=== PATIENT | female | born 1990 | race Caucasian/White ===

== ENCOUNTER → 2021-06-04 10:02 | Outpatient (CLI) | payer OTHER, SELFPAY ==
--- NOTE | ~2021-06-04 | MMUS_ITS ---
EXAMINATION: MM diagnostic lane BI w hipolito, US breast BI complete HISTORY: Chronic right breast lumps at 12:00 and 9:00. Right whitish nipple discharge for 5 years. TECHNIQUE: ML, MLO and craniocaudal 3-D tomosynthesis images of both breasts were performed and synth etic 2-D images were generated. CAD analysis was submitted and interpreted. High resolution complete bilateral breast ultrasound including all 4 quadrants and subareolar areas was performed. COMPARISON: 08/05/2011 right breast ultrasound 05/02/2010 diagnostic right mammogram and right breast ultrasound BREAST PARENCHYMAL COMPOSITION: The breasts are extremely dense, which lowers the sensitivity of mamm ography. FINDINGS: MAMMOGRAPHIC FINDINGS: Dense stroma throughout both breasts, which may obscure masses.. No suspicious mass, architectural di stortion, malignant calcification, skin thickening or retraction is evident. ULTRASOUND: Right breast 12:00 subareolar: 3.8 x 3.1 x 4.2 mm circumscribed oval heterogeneous hypoechoic lesion is noted whic h appears unchanged since 08/05/2011. There is no suspicious internal vascularity or shadowing. The son ographic features and lack of change from most 10 years is consistent with benign process. 9:00 3 cm from nipple: Within the subcutaneous tissues there is an oval circumscribed sonolucency dominic suring 3.3 x 1.9 x 3 mm, without suspicious shadowing, benign in appearance. Left breast No suspicious left breast mass or shadowing is detected. IMPRESSION: 1. No mammographic evidence of malignancy 2. Routine mammographic screening beginning at age 40 is recommended BI-RADS Category 2: Benign finding(s). Reviewed, dictated and finalized at location A. AGE BATTERY CHARGER IMPRESSION: 1. No mammographic evidence of malignancy 2. Routine mammographic screening beginning at age 40 is recommended BI-RADS Category 2: Benign finding(s).
== END ==
PROVIDERS: PCP Nurse Practitioner Family; Visit Provider Advanced Practice Midwife
DX: N63.10 Unspecified lump in the right breast, unspecified quadrant (principal)
CPT/HCPCS: 76641; 77062; 77066; G0279

== ENCOUNTER 2024-09-06 11:31 | Emergency (ER) | payer BC, SELFPAY ==
--- NOTE | ~2024-09-06 | XR_ITS ---
XR chest 2V 09/06/2024 12:17 Indication: Cough for 3 weeks. Procedure: 2 view chest Comparison: No prior studies for comparison. Findings: There is left lower lobe pneumonia. Heart size normal. No pleural effusion or pneumothorax. Impression: 1: Left lower lobe pneumonia. Reviewed, dictated and finalized at location A. Impression: 1: Left lower lobe pneumonia.
[2024-09-06 11:43] VITALS: BP 95/68; PULSE 98; RESP 16; TEMP 37.7; O2SAT 99
--- NOTE | 2024-09-06 12:09 | ED_ITS ---
HPI - URI/Sore Throat General Chief Complaint: Upper Respiratory Infection Stated Complaint: Cough Time Seen by Provider: 09/06/24 12:00 Source: patient and RN notes reviewed Mode of arrival: ambulatory Limitations: no limitations History of Present Illness HPI Narrative: 34-year-old female presents to [facility] complaining upper respiratory symptoms for 3 weeks. Patient says she to home COVID test about 2 weeks ago in tested positive. Patient stated she started to feel better and her cough has progressively gotten worse. Patient states that her upper respiratory symptoms of resolved and she feels like it is more in her chest now. She reports a dry hacking cough that is nonproductive. Reports having coughing spells. She says she is short of breath when she is exerting herself but denies any shortness of breath at rest. He has been taking Tylenol and Zyrtec for symptoms. She says she uses her inhaler as needed for cough and says it helps as well. Patient also reported as she might be developing a urinary tract infection reports increased urinary hesitancy and burning with urination. She denies any fevers, chills, weakness, chest pain, Related Data Home Medications ?Medication ?Instructions ?Recorded ?Confirmed ?Last Taken ?Type tretinoin 0.05 % topical cream 1 applic topical ONCE 01/16/21 04/08/22 Unknown History lamotrigine 100 mg tablet,extended 100 mg PO DAILY 04/08/22 04/08/22 Unknown History release 24 hr (Lamictal XR) lisdexamfetamine 30 mg capsule 30 mg PO DAILY 04/08/22 04/08/22 Unknown History (Vyvanse) lisdexamfetamine 40 mg capsule 40 mg PO QAM 04/08/22 04/08/22 Unknown History (Vyvanse) bupropion HCl 300 mg 24 hr tablet, mg PO 09/06/24 Unknown History extended release ergocalciferol (vitamin D2) 1,250 09/06/24 Unknown History mcg (50,000 unit) capsule norethindrone (contraceptive) 0.35 mg 09/06/24 Unknown History mg tablet viloxazine 200 mg capsule,extended mg PO 09/06/24 Unknown History release 24 hr (Qelbree) Allergies Allergy/AdvReac Type Severity Reaction Status Date / Time Penicillins Allergy Mild Unknown Verified 09/06/24 12:01 sulfamethoxazole (From Allergy Unknown Unknown Verified 09/06/24 12:01 Bactrim) trimethoprim (From Bactrim) Allergy Unknown Unknown Verified 09/06/24 12:01 Review of Systems Review of Systems: CONSTITUTIONAL: Denies fever, chills, or sweats. EYES: Denies visual changes, redness, or discharge. ENT: Denies rhinorrhea, congestion, sore throat, or otalgia. CARDIOVASCULAR: Denies chest pain, palpitations, or edema. RESPIRATORY: Positive for cough and positive for dyspnea with exertion. GASTROINTESTINAL: Denies abdominal pain, nausea, vomiting, or diarrhea. GENITOURINARY: Positive for dysuria and increased urinary hesitancy. Negative for hematuria. SKIN: Denies rash or itching. MUSCULOSKELETAL: Denies back pain, joint pain, or myalgia. NEUROLOGIC: Denies headache, numbness, or weakness. PSYCHIATRIC: Denies anxiety or depression. All other systems reviewed are negative, except as documented in HPI. [facility] Past Medical History Medical History Essential hypertension GERD without esophagitis Asthma Breast lump Last pap smear 2017 ADD (attention deficit disorder) (~2009) Anxiety Surgical History Surgical History Hx of tonsillectomy (~2019) Hx of removal of thyroglossal duct cyst (~1993) Family History Family History Mother Family history of malignant neoplasm of cervix Grandparent Family history of malignant neoplasm of breast Diabetes mellitus Depression Family history of cardiovascular disease Father Family history of mental disorder Depression Hypertension Other Family history of coronary artery disease Social History Social History Social History: 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 Grew up in [place]. Smoking status: Never smoker Alcohol intake: current Drinks per week: 10 Substance use: never Lack of Transportation: No Lack of Food: Never True Current Housing: I Have Housing Concerned About Future Housing: No Difficulty Paying Gas/Electric Bills: No Difficulty Paying for Meds: No Currently Unemployed: No Education: Decline to Answer Difficulty w/ Childcare or Family Care: No Comments At the time of my signature, I reviewed and agree with the nursing past medical, surgical, social, and family history. There is no relevant family history pertinent to the patient complaint. Exam Narrative: GENERAL: This is a well-nourished, well-developed adult, in no apparent distress. She is ill-appearing, she is nontoxic appearing. HEAD: normocephalic, atraumatic. EYES: Sclera clear/white. Vision is grossly intact. Extraocular movements intact. EARS: External ears normal, auditory canals clear and without drainage, TMs normal without perforation. Hearing grossly intact. NOSE: External nose normal with no obvious nasal discharge, nares without redness, no rhinorrhea. THROAT: Mucous membranes moist, posterior pharynx mild erythema. No exudate, uvula midline. NECK: Neck supple, non-tender without lymphadenopathy, masses or thyromegaly. CARDIOVASCULAR: Regular rate and rhythm without murmurs, gallops, or rubs. RESPIRATORY: Lung sounds diminished to bilateral lower lobes. Cough exacerbated by deep inspiration. Breath sounds equal bilaterally. No wheezes, rales, or rhonchi. Normal respiratory rate and rhythm. Respirations are nonlabored, no accessory muscle use, no retractions while at rest. SKIN: warm, Dry, intact with no suspicious lesions or rash, good texture and turgor. NEURO: awake, alert, and oriented to person, place and time. There were no obvious focal neurologic abnormalities. EXTREMITIES: No joint tenderness, effusion, or edema noted. BACK: Nontender without deformity. No CVA tenderness. Course Course Level of Care: Express Care Visit Vital Signs Vital signs: Vital Signs Temperature 99.8 F H 09/06/24 11:43 Pulse Rate 98 09/06/24 11:43 Respiratory Rate 16 09/06/24 11:43 Blood Pressure 95/68 L 09/06/24 11:43 Pulse Oximetry 99 09/06/24 11:43 Temperature 99.8 F H 09/06/24 11:43 Pulse Rate 103 H 09/06/24 12:36 Respiratory Rate 18 09/06/24 12:36 Blood Pressure 111/70 09/06/24 12:36 Pulse Oximetry 98 09/06/24 12:36 Oxygen Delivery Room Air 09/06/24 11:45 Reviewed Transfer Transfered to: [place] Transportation: Other (Private vehicle) Transfer rationale: Patient has a left lower pneumonia and a urinary tract infection. Patient's walking pulse ox dropped to 92% with shortness of breath and respiratory distress with ambulation. Patient's blood pressure was borderline hypotensive. Patient needs higher level care, appropriate testing and treatment. Accepting physician: Dr. Mcconnell MDM - URI/Sore Throat MDM Narrative Medical decision making narrative: Patient's chest x-ray revealed a left lower lobe pneumonia. Patient states that she gets really very short of breath when she is walking. Walking pulse ox test here at the [facility] so that her O2 saturations dropped from 99-92% she became increasingly short of breath along with labored breathing and tachypnea. Patient's urine dipstick also reveal UTI. Patient's blood pressure was borderline hypotensive. Patient was recommended to go to the emergency room for further evaluation she is agreeable to go to [place] [facility]. Spoke with Dr. Mcconnell at [facility] and discussed patient care and she has accepted this patient to be transferred. Patient was advised to remain NPO and go to the emergency department immediately. Patient's family member will take her to the hospital. Lab Data Attestation: I reviewed the patient's lab results. Labs: Lab Results 09/06/24 Range/Units 12:12 POC Urine Color Dark POC Urine Clarity Clear POC Urine pH 6.0 POC Ur Specif [place] 1.020 POC Urine Protein 2+ (Negative) POC Ur Glucose (UA) Negative (Negative) POC Urine Ketones Trace (Negative) POC Urine Blood 3+ (Negative) POC Urine Nitrite Negative (Negative) POC Urine Bilirubin 2+ (Negative) POC Urine Urobilinogen 2.0 POC U Leukocyte Esteras Negative (Negative) POC Urine HCG, Qual Negative (Negative) Imaging Data Radiologist's impression: Indication: Cough for 3 weeks. Procedure: 2 view chest Comparison: No prior studies for comparison. Findings: There is left lower lobe pneumonia. Heart size normal. No pleural effusion or pneumothorax. Impression: 1: Left lower lobe pneumonia. Critical Care Time Critical Care Time Critical Care Time: No Discharge Plan Discharge Clinical Impression: Left lower lobe pneumonia Qualifiers: Pneumonia type: due to unspecified organism Qualified Code(s): J18.9 - Pneumonia, unspecified organism Patient Disposition: Acute Care Hospital Condition: Stable Patient Language: [place] Prescriptions: No Action ergocalciferol (vitamin D2) 1,250 mcg (50,000 unit) capsule norethindrone (contraceptive) 0.35 mg tablet bupropion HCl 300 mg tablet extended release 24 hr PO Qelbree 200 mg capsule,extended release 24hr PO escitalopram oxalate [Lexapro] 20 mg tablet 20 mg PO DAILY Qty: 90 1RF tretinoin 0.05 % cream 1 applic topical ONCE lamotrigine [Lamictal XR] 100 mg tablet extended release 24hr 100 mg PO DAILY Rx Instructions: 1/2 tablets qd Vyvanse 40 mg capsule 40 mg PO QAM Vyvanse 30 mg capsule 30 mg PO DAILY alprazolam [Xanax] 0.5 mg tablet 0.5 mg PO QHS PRN (Reason: anxiety) Qty: 30 0RF L norgest/e.estradiol-e.estrad [Ashlyna] 0.15 mg-30 mcg (84)/10 mcg (7) tablets,dose pack,3 month 1 tablet PO DAILY Qty: 182 3RF losartan 25 mg tablet 25 mg PO DAILY Qty: 90 1RF albuterol sulfate [ProAir HFA] 90 mcg/actuation HFA aerosol inhaler 1 puff inhalation Q4H PRN (Reason: shortness of breath or wheezing) Qty: 8.5 1RF Follow-up/Referrals: PHYSICIAN,BICYCLE REPAIRER [Primary Care Provider] - Time of Disposition: 12:46
[2024-09-06 12:15] LABS: BEDSIDEPREGUCG Negative (Negative); EDUAAPPEAR Clear; EDUABILI 2+ (Negative); EDUABLOOD 3+ (Negative); EDUACOLOR1 Dark; EDUAGLUCOSE Negative (Negative); EDUAKETONE Trace (Negative); EDUALEUKO Negative (Negative); EDUANITRATE Negative (Negative); EDUAPROTEIN 2+ (Negative)
[2024-09-06 12:36] VITALS: BP 111/70; PULSE 103; RESP 18; O2SAT 98
--- NOTE | 2024-09-06 12:38 | PC.NURSE ---
1230- tech walking with pt in hallway to get an exertion pulse ox reading, and pt did start coughing, and pulse ox reading dropped to 92%RA, after resting pt did catch her breath, and pulse ox returned to original 98% RA.
== END 2024-09-06 12:46 | disposition short-term general hospital (02) ==
DX: J18.9 Pneumonia, unspecified organism (principal); N39.0 Urinary tract infection, site not specified; I10 Essential (primary) hypertension; K21.9 Gastro-esophageal reflux disease without esophagitis; J45.909 Unspecified asthma, uncomplicated; F98.8 Other specified behavioral and emotional disorders with onset usually occurring in childhood and adolescence; F41.9 Anxiety disorder, unspecified
CPT/HCPCS: 71046; 81003; 81025; 87086; 99213; G0463

== ENCOUNTER 2024-09-06 13:06 | Emergency (ER) | payer BC, SELFPAY ==
[2024-09-06] VITALS (11 sets, daily range): BP systolic 110–136; BP diastolic 58–74; PULSE 80–102; RESP 16–24; TEMP 36.9–37.3; O2SAT 96–98
--- NOTE | ~2024-09-06 | CT_ITS ---
CTA chest PE protocol Ordering provider: Nancie Christine MD History: 34 years Female with . tachy, hypoxia w/ walking, dimer >3 . Comparison: None. Technique: CT angiogram chest was performed following timed intravenous injection of contrast. Thin s lice axial images and reformatted coronal images were obtained. Three dimensional reformatted images of the chest were also obtained using a [employer] workstation. . Automated exposure control and iterati ve reconstruction technique were employed. The dose-length product was 367.58 mGy-cm. Findings: PULMONARY ARTERIES: No pulmonary embolus. VISUALIZED THORACIC INLET: Normal. MEDIASTINUM: Aorta/coronary arteries: The thoracic aorta is normal. Heart/other: The heart is not enlarged. Lymph nodes: No mediastinal or hilar adenopathy. Small paratracheal lymph nodes are noted. LUNGS: Pneumonia seen in the left upper lobe. No pulmonary nodules or masses. No effusions. No pneumothorax. VISUALIZED UPPER ABDOMEN: the visualized upper abdomen is normal. MUSCULOSKELETAL: Soft tissues: The superficial soft tissues are normal. Bones: Normal spine. IMPRESSION: 1. Left upper lobe pneumonia. Follow-up to resolution is advised. 2. No pulmonary embolism. Reviewed, dictated and finalized at location A.
--- NOTE | 2024-09-06 13:39 | ED.SOB ---
HPI - SOB/Dyspnea General Chief Complaint: Shortness of Breath/Dyspnea Stated Complaint: pneumonia Time Seen by Provider: 09/06/24 13:10 Source: patient, family, RN notes reviewed and other ([facility] [employer]) Mode of arrival: ambulatory Limitations: no limitations History of Present Illness HPI Narrative: Urgent care had called to give provider to provider report notifying us of this patient's arrival: Cough of 3 weeks duration. Diagnosed with COVID 2 weeks ago. She was feeling better and worse he. Reportedly has been having a continued cough as well as fever with a temp of 100?. Using Tylenol and inhaler p.r.n.. He she has been short of breath especially with movement. Chest x-ray obtained today showed a left lower lobe pneumonia and patient was also concern for UTI. Reportedly the dipstick was concerning for infection. Patient had not been prescribed any antibiotics as she was advised to present to the emergency department given that on a walking pulse office she desaturated to 92%. Vital signs were reported the 95/68, 99.8, heart rate 98, respiratory rate 16 on room air. They were concerned about her dyspnea on exertion been wanted her to have labs and further workup. Patient arrives via private car. Patient confirms the above. Has been trying Tessalon perles and OTC meds. Had not been prescribed Abx for PNA or UTI from urgent care due to presenting here. She is on Lexapro, Wellbutrin, control and clonazepam PRN. Cough is dry but occasionally productive. No LE edema, bilaterally or unilaterally. No hemoptysis. States she had a left lower lobe collapse (?) in 2018 or 2019 but without requiring any intervention (chest tube, hospitalization,etc )?. Also has a hitory of sports induced asthma. Has had to sleep sitting due to symptoms. Related Data Home Medications ?Medication ?Instructions ?Recorded ?Confirmed ?Last Taken ?Type tretinoin 0.05 % topical cream 1 applic topical ONCE 01/16/21 04/08/22 Unknown History lamotrigine 100 mg tablet,extended 100 mg PO DAILY 04/08/22 04/08/22 Unknown History release 24 hr (Lamictal XR) lisdexamfetamine 30 mg capsule 30 mg PO DAILY 04/08/22 04/08/22 Unknown History (Vyvanse) lisdexamfetamine 40 mg capsule 40 mg PO QAM 04/08/22 04/08/22 Unknown History (Vyvanse) bupropion HCl 300 mg 24 hr tablet, mg PO 09/06/24 Unknown History extended release ergocalciferol (vitamin D2) 1,250 09/06/24 Unknown History mcg (50,000 unit) capsule norethindrone (contraceptive) 0.35 mg 09/06/24 Unknown History mg tablet viloxazine 200 mg capsule,extended mg PO 09/06/24 Unknown History release 24 hr (Qelbree) Allergies Allergy/AdvReac Type Severity Reaction Status Date / Time Penicillins Allergy Mild Unknown Verified 09/06/24 13:25 sulfamethoxazole (From Allergy Unknown Unknown Verified 09/06/24 13:25 Bactrim) trimethoprim (From Bactrim) Allergy Unknown Unknown Verified 09/06/24 13:25 PMFSH Past Medical History Medical History Essential hypertension GERD without esophagitis Asthma Breast lump Last pap smear 2017 ADD (attention deficit disorder) (~2009) Anxiety Surgical History Surgical History Hx of tonsillectomy (~2019) Hx of removal of thyroglossal duct cyst (~1993) Family History Family History Mother Family history of malignant neoplasm of cervix Grandparent Family history of malignant neoplasm of breast Diabetes mellitus Depression Family history of cardiovascular disease Father Family history of mental disorder Depression Hypertension Other Family history of coronary artery disease Social History Social History Social History: 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 [place] up in [place]. Smoking status: Never smoker Alcohol intake: current Drinks per week: 10 Substance use: never Lack of Transportation: No Lack of Food: Never True Current Housing: I Have Housing Concerned About Future Housing: No Difficulty Paying Gas/Electric Bills: No Difficulty Paying for Meds: No Currently Unemployed: No Education: Decline to Answer Difficulty w/ Childcare or Family Care: No Exam Narrative: GENERAL: well-nourished HEAD: Normocephalic, atraumatic. EYES: non icteric ENT: Nares clear, no rhinorrhea or epistaxis. NECK: Supple. CHEST: Frequent loud coughing spells. Difficult to auscultate due to intense coughing fits. Nearly barking sound. No stridor. HEART: Tachycardic rate and rhythm. . ABDOMEN: Soft, nondistended. EXTREMITIES: Normal range of motion. No lower extremity edema. SKIN: Warm, dry, no rash. NEURO: No focal deficits. Alert and oriented x3. PSYCH: Normal mood and affect. Course Vital Signs Vital signs: Vital Signs Temperature 99.1 F 09/06/24 13:10 Pulse Rate 102 H 09/06/24 13:10 Respiratory Rate 20 09/06/24 13:10 Blood Pressure 136/74 09/06/24 13:10 Pulse Oximetry 96 09/06/24 13:10 Oxygen Delivery Room Air 09/06/24 13:10 Temperature 98.5 F 09/06/24 18:48 Pulse Rate 82 09/06/24 20:21 Respiratory Rate 17 09/06/24 20:21 Blood Pressure 110/74 09/06/24 20:21 Pulse Oximetry 98 09/06/24 20:21 Oxygen Delivery Room Air 09/06/24 18:09 Fraction of Inspired Oxygen 100 09/06/24 14:25 MDM - SOB/Dyspnea MDM Narrative Medical decision making narrative: Patient presents from urgent care where she was diagnosed with PNA and UTI but concerned because walking pulse ox desaturated to 92% on room air. In the emergency department she is afebrile with vital signs notable for mild tachycardia. Because the tachycardia and the report of desaturating to 92% at urgent care, will obtain D-dimer. Patient is complaining of back pain due to frequent coughing according to tech at 14:52. She states ibuprofen would be fine. Will give acetaminophen for now until confirm that nSAIDs will not be contraindicated if DOAC is required. Dimer greater than 3. Will proceed with CT imaging to assess for PE. Urinalysis is concerning for urinary tract infection. Previous culture showed no growth. Viral panel negative. Hyperglycemia without anion gap acidosis. Sodium partially corrects (to 136) in the setting of hyperglycemia. She has mild hypokalemia we will replete. She has a leukocytosis, normocytic anemia, and thrombocytosis. The anemia had been present before although she has had a drop though last testing in EMR was from 2021. BNP is elevated. Reference range of the assay suggest that greater than 450 would represent acute heart failure and patient is approaching this although not technically at/above this. test was negative at urgent care earlier today per RN. She walks without desaturating, 96%, per tech. Patient prescribed Levaquin to cover intrathoracic and urinary organisms. Given first dose in ED. ALso Rx for Tessalon perles and Cepacol lozenges. Patient reassessed at the time of discharge. She is very somnolent, frequently falling asleep. Father asks her if she took a dose of her Klonipin which she denies. Lower suspicion that this is medication side effect still lingering from medication containing codeine given earlier (given had not been this tired during walking pulse ox by report). She states she hasn't been sleeping well lately and this is why she is so fatigued at present. Father providing transportation. Differential Diagnosis Differential diagnosis: Likely congestive heart failure, community acquired pneumonia, asthma with exacerbation and pulmonary embolism Medical Records Attestation: I reviewed the patient's medical records. Medical records narrative: Chest x-ray obtained earlier today at [facility] Impression: 1: Left lower lobe pneumonia. Lab Data Attestation: I reviewed the patient's lab results. 09/06/24 14:24 09/06/24 14:24 Labs: Lab Results 09/06/24 09/06/24 Range/Units 14:10 14:24 WBC 14.4 H (4.5-10.0) K/mm3 RBC 3.52 L (4.2-5.4) M/mm3 Hgb 8.8 L (12.0-15.0) g/dL Hct 28.7 L (37.0-47.0) % MCV 81.5 (80-100) fl MCH 25.0 L (26-34) pg MCHC 30.7 L (32-36) g/dl RDW 14.1 (11.5-14.5) % Plt Count 440 H (150-375) k/mm3 MPV 9.6 (7.4-10.4) fl Immature Gran % (Auto) 0.6 H (0-0.5) % Neut % (Auto) 81.8 H (45.5-73.1) % Lymph % (Auto) 11.7 L (18.3-44.2) % [place] % (Auto) 3.7 (2.6-8.5) % Eos % (Auto) 2.0 (0-4.4) % Baso % (Auto) 0.2 (0.2-1.2) % Lymph # (Auto) 1.68 (0.9-3.2) K/mm3 [place] # (Auto) 0.5 (0.1-0.6) K/mm3 Eos # (Auto) 0.3 (0-0.3) K/mm3 Baso # (Auto) 0.0 (0.0-0.1) K/mm3 Abs Immat Gran (auto) 0.09 H (0.00-0.031) K/mm3 Absolute Neuts (auto) 11.7 H (1.3-6.7) K/mm3 Absolute Nucleated RBC 0.000 (0.0-0.012) K/mm3 Nucleated RBC % 0.0 (0.0-0.2) % D-Dimer 3.07 H (<0.48) ug/mL Sodium 135 L (137-145) mmol/L Potassium 3.3 L (3.4-5.0) mmol/L Chloride 99 (98-107) mmol/L Carbon Dioxide 28 (22-30) mmol/L Anion Gap 8 (4-12) mmol/L BUN 7 (7-17) mg/dL Creatinine 0.90 (0.7-1.0) mg/dL Estim Creat Clear Calc Not Reportable Estimated GFR > 60 (59 - ) Glucose 135 H (65-110) mg/dL Calcium 8.0 L (8.4-10.2) mg/dL Magnesium 2.0 (1.6-2.3) mg/dL NT-Pro-B Natriuret Pep 407 H (19.9-100) pg/mL Urine Color Dark yellow (Yellow) Urine Appearance Cloudy H (Clear) Urine pH 6.0 (5.0-9.0) Ur Specific [place] 1.035 (1.001-1.035) Urine Protein 2+ H (Negative) mg/dL Urine Glucose (UA) Negative (Negative) mg/dL Urine Ketones 1+ H (Negative) mg/dL Ur Blood (Man) 3+ H (Negative) Urine Nitrate Negative (Negative) Urine Bilirubin 2+ H (Negative) Urine Urobilinogen 2.0 H (<2.0) mg/dL Add Ur Microanalysis Reviewed Leukocyte Esterase Rfl 1+ H (Negative) XOCHITL/UL Urine RBC >100 H (0-2) /hpf Urine WBC 6-10 H (0-3) /hpf Ur Squamous Epith Cells Many H (Few) /hpf Urine Bacteria 2+ H /hpf Urine Casts 3-5 Influenza A (RT-PCR) Negative (Negative) Influenza B (RT-PCR) Negative (Negative) RSV (RT-PCR) Negative (Negative) SARS-CoV-2 RNA (RT-PCR) Negative (Negative) Imaging Data Radiologist's impression: Impressions Chest CTA 09/06/24 17:13 IMPRESSION: 1. Left upper lobe pneumonia. Follow-up to resolution is advised. 2. No pulmonary embolism. ECG Data EKG #1: Attestation: I personally reviewed and interpreted this ECG as follows: ECG completion date: 09/06/24 ECG completion time: 17:53 Interpretation: Normal sinus rhythm at a rate of 72 beats per minute. [place] interval 156. QRS 82. QT/QTC 429/453. Good R-wave progression across the precordial leads. T-wave flattening in 3 but otherwise upright in normal in contiguous inferior leads 2 and AVF. No other T-wave inversions. Normal ECG. Discharge Plan Discharge Clinical Impression: UTI (urinary tract infection), Hyperglycemia, Hypokalemia, Leukocytosis, Normocytic anemia, Thrombocytosis, Left upper lobe pneumonia Patient Disposition: Home Condition: Stable Instructions: Antibiotic Form, Urinary Tract Infection in Women (DC), Hypokalemia (ED), Community Acquired Pneumonia (DC), Leukocytosis (ED), Nondiabetic Hyperglycemia (ED), Anemia (ED) Additional Instructions: You do have evidence of a pneumonia as well as as urinary tract infection. The antibiotic below should cover both unless the urine culture grows an organism that requires an alternative antibiotic. You received the 1st dose in the emergency department with rest the course prescribed which you can start tomorrow. It can take a bit of time to recover from pneumonia. Gysq-izf-hhfelqg medications are fine although with limited research on their effectiveness. Honey has been shown to be effective for a cough. You are also being prescribed to additional medications that can help with cough. Follow-up with primary care physician. If you do not have 1 the name of the doctors listed below. Return to the emergency department with any new or worsening or unmanaged symptoms. Patient Language: Austrian Prescriptions: New benzonatate 100 mg capsule 100 mg PO BID PRN (Reason: cough) Qty: 20 0RF Sore Throat and Cough 5-7.5 mg lozenge 1 kaykay PO Q4H PRN (Reason: cough) Qty: 18 0RF levofloxacin 500 mg tablet 500 mg PO DAILY Qty: 7 0RF No Action ergocalciferol (vitamin D2) 1,250 mcg (50,000 unit) capsule norethindrone (contraceptive) 0.35 mg tablet bupropion HCl 300 mg tablet extended release 24 hr PO Qelbree 200 mg capsule,extended release 24hr PO escitalopram oxalate [Lexapro] 20 mg tablet 20 mg PO DAILY Qty: 90 1RF tretinoin 0.05 % cream 1 applic topical ONCE lamotrigine [Lamictal XR] 100 mg tablet extended release 24hr 100 mg PO DAILY Rx Instructions: 1/2 tablets qd Vyvanse 40 mg capsule 40 mg PO QAM Vyvanse 30 mg capsule 30 mg PO DAILY alprazolam [Xanax] 0.5 mg tablet 0.5 mg PO QHS PRN (Reason: anxiety) Qty: 30 0RF L norgest/e.estradiol-e.estrad [Ashlyna] 0.15 mg-30 mcg (84)/10 mcg (7) tablets,dose pack,3 month 1 tablet PO DAILY Qty: 182 3RF losartan 25 mg tablet 25 mg PO DAILY Qty: 90 1RF albuterol sulfate [ProAir HFA] 90 mcg/actuation HFA aerosol inhaler 1 puff inhalation Q4H PRN (Reason: shortness of breath or wheezing) Qty: 8.5 1RF Follow-up/Referrals: Luís Chowdary MD [Physician] - (family practice) UNKNOWN,DOCTOR [Primary Care Provider] - Stand Alone Forms: Work/School Release IP Time of Disposition: 18:53
--- NOTE | 2024-09-06 14:00 | ECG_ITS ---
Test Date: 2024-09-06 17:53:41 Measurements Intervals [place] Rate: 72 P: 6 DE: 156 QRS: 13 QRSD: 82 T: 29 QT: 429 QTc: 472 Interpretive Statements SINUS RHYTHM BASELINE WANDER- V1-V6 NORMAL ECG No previous ECG available for comparison Electronically Signed On 09-06-2024 18:11:53 CDT by Kurtis Milton D.O.
[2024-09-06] MEDS: guaiFENesin/CODEINE (*CRX) 200/20 MG 10 ML SYRUP PO (14:04)
[2024-09-06] MEDS: predniSONE 20 MG TABLET 60 MG PO (14:06)
[2024-09-06] MEDS: ALBUTEROL SULFATE NEB 2.5 MG/3 ML INH INHALATION (14:23)
[2024-09-06 14:37] LABS: Basophils Percent Auto 0.2 % (0.2-1.2); Eosinophils Absolute Auto 0.3 K/mm3 (0-0.3); Hematocrit 28.7 % (37.0-47.0); Hemoglobin 8.8 g/dL (12.0-15.0); Immature Granulocyte Absolute 0.09 K/mm3 (0.00-0.031); Immature Granulocyte Percent A 0.6 % (0-0.5); Lymphocytes Absolute Auto 1.68 K/mm3 (0.9-3.2); Lymphocytes Percent Auto 11.7 % (18.3-44.2); Mean Corpuscular HGB Conc 30.7 g/dl (32-36); Mean Corpuscular Volume 81.5 fl (80-100); Mean Platelet Volume 9.6 fl (7.4-10.4); Monocytes Absolute Auto 0.5 K/mm3 (0.1-0.6); Monocytes Percent Auto 3.7 % (2.6-8.5); Neutrophils Absolute Auto 11.7 K/mm3 (1.3-6.7); Neutrophils Percent Auto 81.8 % (45.5-73.1); Platelet Count Result 440 k/mm3 (150-375); Red Blood Count 3.52 M/mm3 (4.2-5.4); Red Cell Distribution Width 14.1 % (11.5-14.5); White Blood Count 14.4 K/mm3 (4.5-10.0)
--- OUTSIDE RECORDS SUMMARY | 2024-09-06 14:37 | XMS_ITS ---
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 Name Role Phone Celeste Ascencioh Primary Care Provider Unavailab Shahla Murdock Unavailable [phone] REASON FOR VISIT Labs Medications Medication SIG (Take, Route, Frequency, Duration) Notes Start Date End Date Status Ergocalciferol 1.25 MG (85749 UT) 1 capsule Orally once weekly 09/05/2024 Active Ergocalciferol 50 MCG (2000 UT) 1 capsule Orally Once a day for 90 days 11/06/2024 11/01/2025 Active Social History Sex Assigned At : Social History Observation Description Sex Assigned At Female Encounters Encounter Location Date Provider Diagnosis [address] [address] 09/05/2024 Shahla Gordon Plan Of Treatment Medication Medication Name Sig Start Date Stop Date Notes Ergocalciferol 1.25 MG (5000 0 UT) 1 capsule Orally once weekly 09/05/2024 Ergocalciferol 50 MCG (2000 UT) 1 capsul e Orally Once a day for 90 days 11/06/2024 11/01/2025 Progress Notes * CINDI SMITH MDOB:[birth year] (34 yo F)Acc No.[id number]:09/05/2024 Patient: Dario CINDI MUELLER :1990 A ge:34 Y S ex:Female Address:[address] [place], [address] * Refills Start Ergocalciferol Capsule, 1.25 MG (38734 UT), Orally, 8, 1 capsule, once weekly, Refills=0 Start Ergocalciferol Capsule, 50 MCG (1999 UT), Orally, 90 Capsule, 1 capsule, Once a day, 90 days, Refills=3 * true * Date: Generated for Christos james/[place]/Melvina on: 0 09/06/2024 02:37 PM CDT
--- OUTSIDE RECORDS SUMMARY | 2024-09-06 14:37 | XMS_ITS | Clinical Summary ---
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 Name Role Phone Unavailable Primary Care Provider Unavailabl e Social History Tobacco Use Types Packs/Day Years Used Date Smoking Tobacco: Never Assessed Comments Unknown Sex and Gender Information Value Date Recorded Sex Assigned at Not on file Legal Sex Female 11:46 PM CDT Gender Identity Not on file Sexual Orientation Not on file Plan of Treatment Health Maintenance Due Date Last Done Comments DTAP/TDAP/TD VACCINES (1 - Tdap) 2009 HEPATITIS B VACCINES (1 of 3 - 19+ 3-dose series) 2009 HPV/Cotest (21-29) 2011 PAP SMEAR 2011 CERVICAL CANCER SCREENING 2020 HPV/Cotest (30-65) 2020 PAP SMEAR 2020 INFLUENZA VACCINE (#1) 2023 HPV VACCINES Aged Out No longer eligi ble based on patient's age to complete this topic PNEUMOCOCCAL VACCINE 0-49 YEARS Aged Out No longer eligible based on patient's age to complete this topic
--- OUTSIDE RECORDS SUMMARY | 2024-09-06 14:37 | XMS_ITS | Data Portability ---
Author Organization [facility] Address [address] [place] [address] [place] [address] Care Team Providers Care Manager Retail Sales Name Role Phone PHIL LUZ Primary Care Provider [phone] Assessment Encounter Date Assessment Date Assessment LastModified by Organization Details LastModified Time 02/10/2024 02/10/2024 do not bill for this visit. Pt was not seen [email or web address] Not available 02/11/2024 09:11:48 Plan of Treatment Reminders Order Date Submit Date Provider Last Modified By Organization Details Last Modified Time Details Appointments None recorded. Lab herpes simplex, culture, unspecified specimen 2023 024 [facility] (Lab), [address], [place], [address], 4 12:09:04 test, urine 2023 024 [email or web address], [address], [address], [place], [address], 4 14:25:11 Referral None recorded. Procedures None recorded. Surgeries loop electrode excision procedure, surgical (LEEP) (SURG) 2023 024 [facility] [address] [address], [place], [address], 4 15:52:34 Imaging None recorded. Medication Orders valacyclovi r 500 mg tablet 2023 024 [facility] [address] [place], [address], 4 17:25:04 metronidazo le 0.75 % (37.5 mg/5 gram) vaginal gel 2023 024 [facility] [address] [facility], [place], [address], 4 09:57:40 Patient TargetsNo targets recorded. Patient InstructionsNo instructions recorded. Reason for Referral None Reported. Results Created Date Observation Date Name Description Value Unit Range Abnormal Flag Note LastModifiedBy Organization Detail LastModifiedTime 02/03/20 24 02/03/2024 [facility] PATHO LOGY surgical pathology SEE RESULT S BELOW CASE REPOR T: Surgi ankush Patho logy Repor t Case: [id number] Autho zay carter Provi vince: Kirby Stanton MD Colle cted: 02/02 1550 Order ing Locat ion: [place] Path[facility] Recei cesario: 02/03 0518 Patho logis t: Lacey Chilel MD Speci men: Cervi x, DYSPL NONA OF CERVI X, CERVI ANKUSH DX LEEP, ----- ----- ----- ----- ----- ----- ----- ----- ----- ----- ----- ----- ----- ----- ----- ----- ----- ---- FINAL DIAGN OSIS: Cervi x, LEEP: -High -grad e squam ous intra epith elial lesio n (LEANDRA- 3) with endoc ervic al gland ular invol vemen t. -Ecto cervi nakush and endoc ervic al edson ns negat magali for dyspl nona. Elect natalie rubin by Lacey Chilel MD on at 4:08 PM ----- ----- ----- ----- ----- ----- ----- ----- ----- ----- ----- ----- ----- ----- ----- ----- ----- ---- CLINI ANKUSH INFOR MATIO N: DYSPL NONA OF CERVI X MICRO SCOPI C DESCR IPTIO N: A micro scopi c exami natio n was perfo rmed. GROSS DESCR IPTIO N: A. Cervi x. The speci men is label ed with the patie nt's name, demog raphi cs and cerv ical biops y LEEP . Recei cesario in forma eloy are 4 unori ented fragm ents of cervi ankush tissu e measu ring 4.1 x 3.2 x 1.2 cm in aggre gate. The presu med edson ns are inked black and the speci men is seria lly secti oned. The entir e speci men is submi tted in casse ttes A1-A8 . Gross ed by Vita Palmer on Not Available [facility] (Lab) [address], [place], [address], 02/04/2024 17:11:23 02/03/20 24 02/03/2024 pregn hiro test, urine HCG negati ve Not Available [facility] [address], [place], [address], 02/03/2024 14:24:43 02/22/20 24 02/22/2024 WOMEN 'S HEALT H SWAB, CELESTE bacterial vaginosis (bv), tma Negati ve negati ve This test detec ts ribos omal RNA from bacte kinjal assoc iated with bacte rial vagin osis (BV), inclu ding Lacto bacil myriam (L. gasse ri, L. crisp atus and L. jense opal), Gardn erell a vagin gisell, and Atopo bium vagin ae by Trans cript ion-M ediat ed Ampli ficat ion (TMA) . A singl e quali tativ e resul t is repor maria r based on instr ument softw are to deter mine BV posit magali or negat magali statu s. Not Available [facility] (Lab) [address] [place], [address], 02/23/2024 15:18:48 02/22/20 24 02/22/2024 WOMEN 'S HEALT H SWAB, CELESTE korin species, tma Negati ve negati ve Not Available [facility] (Lab) [address] [place], [address], 02/23/2024 15:18:48 02/22/20 24 02/22/2024 WOMEN 'S HEALT H SWAB, CELESTE korin glabrata, tma Negati ve negati ve Not Available [facility] (Lab) [address], [place], [address], 02/23/2024 15:18:48 02/22/20 24 02/22/2024 WOMEN 'S HEALT H SWAB, CELESTE trichomonas vaginalis, tma Negati ve negati ve This assay tests for and diffe renti ates betwe en Cassie da glabr nova, the Cassie da speci es group (C. albic ans, C. tropi calis , C. parap marilin is, C. dubli charly is), and Trich omona s vagin gisell by Trans cript ion-M ediat ed Ampli ficat ion (TMA) . Not Available [facility] (Lab) [address] [place], [address], 02/23/2024 15:18:48 04/11/20 24 04/11/2024 CULTU RE: HERPE S SIMPL EX VIRUS (HSV) , REFLE X TYPIN G source LESION FLUID Not Available [facility] (Lab) [address] [place], [address], 04/15/2024 12:09:03 04/11/20 24 04/11/2024 CULTU RE: HERPE S SIMPL EX VIRUS (HSV) , REFLE X TYPIN G hsv culture, body fluid ISOLAT ED abnormal Not Available [facility] (Lab) [address], [place], [address], 04/15/2024 12:09:03 04/11/20 24 04/11/2024 CULTU RE: HERPE S SIMPL EX VIRUS (HSV) , REFLE X TYPIN G hsv 2 NOT ISOLAT ED Not Available [facility] (Lab) [address], [place], [address], 04/15/2024 12:09:03 04/11/20 24 04/11/2024 CULTU RE: HERPE S SIMPL EX VIRUS (HSV) , REFLE X TYPIN G hsv 1 ISOLAT ED abnormal Perfo rming Organ izati on Infor matio n: Site ID: CB Name: Fernando santillananthony sSaskia Proctor Addre ss: [address] [place] [address] Dire tor: Erasmo singh V Gurvinder s Not Available [facility] (Lab) [address], [place], [address], 04/15/2024 12:09:03 Result Notes None recorded. Procedures Surgical History Date Name Laterality Status Provider Name and Address Organization Details Recorded Time 024 LEEP completed Kieran Stanton MD [address], [place], [address], [facility] 02/03/2024 22:46:22 024 loop electrosurgical excision procedure completed Amaris Yee [facility] 02/10/2024 15:42:54 024 Colposcopy completed Dalila Decker KATHY- [address], [place], [address], [facility] 06/17/2023 17:19:53 024 Colposcopy completed Carolina Escalera [facility] 06/28/2023 17:52:12 024 Colposcopy completed [facility] 06/28/2023 17:52:37 023 Date of Last Pap Smear completed [facility] 05/10/2023 15:58:06 023 Colposcopy completed Staci Sinclair MD [address], [place], [address], [facility] 07/17/2022 17:12:22 023 Colposcopy completed [facility] 05/10/2023 16:00:59 022 Date of Last Mammogram completed [facility] 05/10/2023 16:00:03 020 Tonsillectomy completed [facility] 05/10/2023 16:00:48 019 open embolization of pulmonary artery completed [facility] 05/10/2023 16:03:34 Imaging Results None recorded. Procedure Notes None recorded. Medical Equipment None Reported. Allergies Allergen ID Allergen Name Allergen Category Reaction Reaction Severity Criticality Documentation Date Start Date Code Code System Note Provider Name and Address Organization Details Recorded Time 72302 Bactrim medicatio n Not available Not available Not available 01/27/2021 33848 9 RxNorm Senait Flowers [facility] 13:55:52 79861 Penicilli n Not available Not available Not available Not available 04/02/2022 84552 RxNorm Meghan vidal [facility] 12:20:13 Medications Name Sig Start Date Stop Date Status Note LastModified by Organization Details LastModified Time buspirone 5 mg tablet TAKE 1 TABLET BY MOUTH TWICE DAILY 12/19 completed Not Available Not Available Not Available doxycycline hyclate 100 mg capsule 04/02 completed Not Available Not Available Not Available fluconazole 150 mg tablet 01/15 completed Not Available Not Available Not Available metronidazo le 0.75 % (37.5 mg/5 gram) vaginal gel INSERT 1 APPLICATO RFUL VAGINALLY ONCE DAILY AT BEDTIME FOR 5 DAYS 04/11 completed Not Available Not Available Not Available dextroamphe tamine-amph etamine 10 mg tablet TAKE 1 TABLET BY MOUTH DAILY NEEDED FOR 30 DAYS 04/02 completed Not Available Not Available Not Available clonazepam 0.5 mg tablet TAKE 1 TABLET BY MOUTH ONCE DAILY NEEDED active Not Available Not Available No t Available amlodipine 5 mg tablet 04/02 completed Not Available Not Available Not Available tretinoin 0.05 % topical cream 04/11 completed Not Available Not Available Not Available valacyclovi r 500 mg tablet Take 1 tablet twice a day by oral route for 3 days. active Not Available Not Available No t Available alprazolam 0.5 mg tablet TAKE 1 TABLET BY MOUTH ONCE DAILY 05/10 completed Not Available Not Available Not Available chlordiazep oxide 25 mg capsule 05/10 completed Not Available Not Available Not Available losartan 25 mg tablet 06/17 completed Not Available Not Available Not Available hydroxyzine HCl 25 mg tablet 05/10 completed Not Available Not Available Not Available albuterol sulfate HFA 90 mcg/actuati on aerosol inhaler INHALE 1 PUFF BY MOUTH EVERY 4 HOURS NEEDED FOR SHORTNESS OF BREATH OR WHEEZING active Not Available Not Available No t Available norethindro ne (contracept magali) 0.35 mg tablet TAKE 1 TABLET BY MOUTH ONCE DAILY active Not Available Not Available No t Available hydroxyzine HCl 10 mg tablet TAKE 1 TABLET BY MOUTH THREE TIMES DAILY NEEDED 06/17 completed Not Available Not Available Not Available urea 40 % lotion 01/27 completed Not Available Not Available Not Available lamotrigine 100 mg tablet TAKE 1/2 (ONE-HALF ) TABLET BY MOUTH ONCE DAILY FOR 30 DAYS 05/10 completed Not Available Not Available Not Available olanzapine 5 mg disintegrat ing tablet DISSOLVE 1/2 TO 1 (ONE-HALF TO ONE) TABLET IN MOUTH TWICE DAILY NEEDED FOR ANXIETY 12/19 completed Not Available Not Available Not Available hydroxyzine pamoate 25 mg capsule 05/10 completed Not Available Not Available Not Available escitalopra m 20 mg tablet TAKE 1 TABLET BY MOUTH ONCE DAILY active Not Available Not Available No t Available bupropion HCl XL 300 mg 24 hr tablet, extended release TAKE 1 TABLET BY MOUTH IN THE MORNING active Not Available Not Available No t Available bupropion HCl XL 150 mg 24 hr tablet, extended release TAKE 1 TABLET BY MOUTH ONCE DAILY IN THE MORNING 02/09 completed Not Available Not Available Not Available nitrofurant oin monohydrate /macrocryst als 100 mg capsule TAKE 1 CAPSULE BY MOUTH EVERY 12 HOURS WITH MEALS FOR 7 DAYS 12/19 completed Not Available Not Available Not Available lamotrigine 04/02 completed Not Available Not Available Not Available Vyvanse 30 mg capsule TAKE 1 CAPSULE BY MOUTH EVERY DAY AT NOON 05/06 completed Not Available Not Available Not Available Vyvanse 50 mg capsule 06/17 completed Not Available Not Available Not Available Vyvanse 60 mg capsule TAKE 1 CAPSULE BY MOUTH ONCE DAILY IN THE MORNING FOR 30 DAYS 05/10 completed Not Available Not Available Not Available Vyvanse 40 mg capsule TAKE 1 CAPSULE BY MOUTH EVERY DAY IN THE MORNING 01/19 completed Not Available Not Available Not Available clonidine HCl ER 0.1 mg tablet,exte nded release,12 hr TAKE 1 TABLET BY MOUTH ONCE DAILY 05/10 completed Not Available Not Available Not Available Simpesse 0.15 mg-30 mcg (84)/10 mcg(7) tablets,3 month dose pack TAKE 1 TABLET BY MOUTH EVERY DAY 04/02 completed Not Available Not Available Not Available Sodium Fluoride 5000 Plus 1.1 % dental cream BRUSH ONCE DAILY BEFORE BEDTIME 05/06 completed Not Available Not Available Not Available Qelbree 200 mg capsule,ext ended release TAKE 3 CAPSULES BY MOUTH ONCE DAILY 04/11 completed Not Available Not Available Not Available Azstarys 39.2 mg-7.8 mg capsule TAKE 1 CAPSULE BY MOUTH ONCE DAILY IN THE MORNING FOR 30 DAYS 05/10 completed Not Available Not Available Not Available Vitals Date Recorded Body height Body mass index (BMI) Body weight Systolic blood pressure Diastolic blood pressure Provider Name and Address Organization Details Last Updated DateTime 12/20/2023 162.56 cm 32.8 kg/m2 75931.14 g 114 mm[Hg] 76 mm[Hg] [facility] 4 16:32:41 Date Recorded Body height Body mass index (BMI) Body weight Systolic blood pressure Diastolic blood pressure Provider Name and Address Organization Details Last Updated DateTime 02/03/2024 162.56 cm 31.8 kg/m2 66316.59 g 111 mm[Hg] 78 mm[Hg] [facility] 4 14:23:10 Date Recorded Body height Body mass index (BMI) Body weight Systolic blood pressure Diastolic blood pressure Provider Name and Address Organization Details Last Updated DateTime 02/10/2024 162.56 cm 32.3 kg/m2 49467.37 g 119 mm[Hg] 81 mm[Hg] [facility] 4 15:41:49 Date Recorded Body height Body mass index (BMI) Body weight Systolic blood pressure Diastolic blood pressure Provider Name and Address Organization Details Last Updated DateTime 02/22/2024 162.56 cm 32.6 kg/m2 85427.55 g 130 mm[Hg] 87 mm[Hg] [facility] 4 11:19:25 Date Recorded Body height Body mass index (BMI) Body weight Systolic blood pressure Diastolic blood pressure Provider Name and Address Organization Details Last Updated DateTime 04/11/2024 162.56 cm 31.9 kg/m2 77195.18 g 119 mm[Hg] 75 mm[Hg] Vane Ortega [facility] 4 17:01:34 Social History Question Answer Notes LastModified by Organizat ion Details LastModified Time Tobacco Smoking Status Never Smoker [facility] 06/17/2023 16:50:16 Do You Have An Advance Directive? No [email or web address] Information n ot available 04/11/2024 What Is Your Level Of Alcohol Consumption? Occasional [email or web address] Information not available 04/11/2024 How Many Years Have You Consumed Alcohol? 10 [email or web address] Information not available 04/11/2024 Are You Blind Or Do You Have Difficulty Seeing? No [email or web address] Information n ot available 04/11/2024 What Is Your Level Of Caffeine Consumption? Occasional [email or web address] Information not available 04/11/2024 How Much Tobacco Do You Chew? None [email or web address] Information not available 04/11/2024 In The 14 Days Before Symptom Onset, Have You Had Close Contact With A Laboratory-confirm ed COVID-19 While That Case Was Ill? No [email or web address] Information n ot available 04/11/2024 In The 14 Days Before Symptom Onset, Have You Had Close Contact With A Person Who Is Under Investigation For COVID-19 While That Person Was Ill? No [email or web address] Information not available 04/11/2024 Have You Been To An Area Known To Be High Risk For COVID-19? No [email or web address] Information not available 04/11/2024 Are You Deaf Or Do You Have Serious Difficulty Hearing? No [email or web address] Information not available 04/11/2024 What Type Of Diet Are You Following? REGULAR [email or web address] Information n ot available 04/11/2024 What Is The Highest Grade Or Level Of School You Have Completed Or The Highest Degree You Have Received? 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 No [email or web address] Information not available 04/11/2024 Have You Ever Been Counseled For Unhealthy Alcohol Use? No [email or web address] Information not available 06/17/2023 Do You Use Protection During Sex? No [email or web address] Information not available 04/11/2024 Do You Use Your Seat Belt Or Car Seat Routinely? Yes [email or web address] Information not available 04/11/2024 Do You Have Smoke And Carbon Monoxide Detectors In Your Home? Yes [email or web address] Information not available 04/11/2024 How Much Tobacco Do You Smoke? No [email or web address] Information not available 04/11/2024 Do You Use Any Illicit Or Recreational Drugs? No [email or web address] Information not available 04/11/2024 Do You Use Sunscreen Routinely? Yes [email or web address] Information not available 04/11/2024 Has Tobacco Cessation Counseling Been Provided? No [email or web address] Information not available 06/17/2023 Have You Used IV Drugs? No [email or web address] Information not available 04/11/2024 Do You Or Have You Ever Used Any Other Forms Of Tobacco Or Nicotine? No [email or web address] Information not available 06/17/2023 Sex: Unknown Functional Status Question Answer Note LastModified by Organizat ion Details LastModified Time Do you have difficulty walking or climbing stairs? No [email or web address] Information not available 06/17/2023 Are you able to walk? [email or web address] Information not available 04/11/2024 Are you able to care for yourself? Yes [email or web address] Information not available 06/17/2023 Do you have difficulty dressing or bathing? No [email or web address] Information not available 06/17/2023 What is your exercise level? Occasional [email or web address] Information not available 04/11/2024 Mental Status None recorded. Family History Relationship Description Onset Age of this Age Resolved Age Notes LastModified by Organization Details LastModified Time Maternal Grandmother Malignant tumor of breast [email or web address] Not available 2022 15:28:57 Maternal Grandmother Disorder of thyroid gland Not available 2022 15:28:57 Paternal Grandfather Depressive disorder Not available 2022 15:28:57 Mother Malignant tumor of breast Not available 2022 15:28:57 Mother Substance abuse Not available 2022 15:28:57 Paternal Grandmother Depressive disorder Not available 2022 15:28:57 Medical History Condition Response Anxiety Disorder Y Neurologic/Epilepsy Y Asthma Y Allergies (Food, seasonal, environmental ) Y Drug/Latex Allergies/Reactions Y History of STI Y Deep Vein Thrombosis Y History of abnormal pap Y High Cholesterol Y Psychiatric Illness Y Pulmonary (TB, Asthma) Y Depression/ depression Y Hypertension Y Gynecological History Statement/Question Response Abnormal Pap Yes Date of Last Mammogram 06/04/2021 Flow Light Date of LMP 01/30/2024 N On BCP's at Conception? N STIs/STDs Yes Was last menstrual period normal Y HPV Vaccine Y Colposcopy 06/17/2023 Duration of Flow (days) 4 14 Current Control Method BCPs Are cycles usually normal Y Frequency of Cycle (Q days) 90 Sexually Active? N Menses Monthly N Date of DEXA bone scan Age of first menstrual cycle 14 Date of Last Pap Smear 05/10/2023 Sexual Problems? Yes LMP Approximate N Obstetrics History GPAL:G 0 P 0 0 0 0 Type Value Living 0 Total 0 Past Encounters Encounter ID Performer Location Encounter Start Date Encounter Closed Date Diagnosis/Indication Diagnosis SNOMED-CT Code Diagnosis ICD10 Code Diagnosis Note [id number] [address],[facility] [place] [address] 01/27/2021 13:28:45 01/28/2021 23:01:05 Gynecologic examination 28576627 Z01.419 Z11.51 Desires pap today. Vaginitis 37909541 N76.0 Normal exam. Discussed use of mild soap like dove or ivory, cotton underwear w/out dye, hypoallerg enic detergent, wipe from front to back, avoid tub baths, keep perineum clean and dry, d/c use of baby wipes. Encouraged daily intake of yogurt or womens [place] probiotic. Internal and external affirm collected along with hsv swab in area that pt felt was red. [id number] [facility] [address] [address] 02/18/2021 13:59:14 02/19/2021 22:53:28 Gynecologic examination 28305568 Z01.419 Z11.51 Take Calcium with Vitamin D 1200mg daily if not receiving in daily diet. It is strongly advised to have an annual flu shot and up can obtain at most pharmacies . If you have not had a TDap shot in the last 10 years you should obtain one as well. Discussed with patient & provided with informatio n regarding Gardisil vaccine to prevent the 4 strains for HPV that cause cervical cancer if under age 26. Encourage safe sexual practices, to use condoms and limit partners if not already in a monogamous relationsh ip. Do monthly self breast exams. Have mammogram yearly or every other year depending on family history. BRCA testing is now available for patients with strong genetic history of female cancer. If interested contact the office. Engage in daily exercise of low impact aerobic exercise 45-60 minutes 4-5 times weekly. Avoid tobacco and illicit drugs as well as using moderation with alcohol intake less than 1-2 8 oz beverages daily. This lifestyle behavior pattern will lead to less health conditions and longer life span. If BMI greater than 25 weight watchers or dietary consult advised. Patient received above instructio ns, and questions have been answered. If you have any questions please call or respond to this email. Patient was made aware of the patient portal and may obtain a paper copy of today's plan if desired. Mass of right breast [id number] and u/s ordered. If nl will rtc in 6 weeks. If abnormal imaging will schedule with specialist laila If nl imaging but lump persists at 6 week f/u will need to see specialist . [id number] [facility] [address] [address] 04/02/2022 12:05:06 04/02/2022 14:06:36 Contraception care management [id number] Z30.9 We discussed given patients hx of HTN and PE - she is not a candidate to stay on current OCPWe discussed risk of combined OCP with her medical hx Discussed all control options in great detail. Pt would like to start POP. She is aware of the risks and benefits. She has contraindi cations to use of OCP or other estrogen containing hormonal therapy. . She is aware it is not effective for control the first month. She is also aware of the importance of taking at the same time every day. Encouraged use of condoms as the pill does not protect against STD's. Will return in 3 months for med check. Consent was read and signed. Pt verbalized understand ing. Stop current OCP, swith to POPShe is aware that lamotrigin e can decrease effectiven ess of POP - need to use condoms if she becomes SADiscusse d R/B of POP discussed Vaginitis 99159531 N76.0 Suspect BV on examVagini tis panel sentSTI endocervic al testing sentBlood STI testing declinedVu lvar care guidelines discussed in-depthHa ndout given to patient, discussed ways to prevent recurrent BVRx sent Elevated blood-pressure reading without diagnosis of hypertension [id number] R03.0 Bp today 164/104 - she has no symptomsSt ates she often has elevated BPEncourag ed patient to be evaluated today for this. She will call her PCP - if unable to be seen by PCP immediatel y, stressed patient needs to be seen in the ED today for further evaluation and management .We discussed risk of elevated BPRTC in 2 weeks for WWJoan as she is due Time spent in visit is a total of 45 mins with at least 50% of visit consisting of counseling and review of plan of care. Venereal d isease screening [id number] Z11.3 [id number] [facility] [address] [address] 05/06/2022 15:46:55 05/06/2022 17:03:38 Gynecologic examination 26308405 Z01.419 Take Calcium with Vitamin D 1200mg daily if not receiving in daily diet. It is strongly advised to have an annual flu shot and up can obtain at most pharmacies . If you have not had a TDap shot in the last 10 years you should obtain one as well. Discussed with patient & provided with informatio n regarding Gardisil vaccine to prevent the 4 strains for HPV that cause cervical cancer if under age 26. Encourage safe sexual practices, to use condoms and limit partners if not already in a monogamous relationsh ip. Do monthly self breast exams. Have mammogram yearly or every other year depending on family history. BRCA testing is now available for patients with strong genetic history of female cancer. If interested contact the office. Engage in daily exercise of low impact aerobic exercise 45-60 minutes 4-5 times weekly. Avoid tobacco and illicit drugs as well as using moderation with alcohol intake less than 1-2 8 oz beverages daily. This lifestyle behavior pattern will lead to less health conditions and longer life span. If BMI greater than 25 weight watchers or dietary consult advised. Patient received above instructio ns, and questions have been answered. If you have any questions please call or respond to this email. Patient was made aware of the patient portal and may obtain a paper copy of today's plan if desired. WWEMedical hx : HTN, Anxiety, PE in 2019 per patientBC - POPHappy with this method. Would like to continueR/ B of POP discussed and accepted by patientRx sent x 12 monthsPati ent aware of need to use condoms as lamotrigin e could decrease effectiven ess of POPLast pap 02/18/2021, NILM, HPV 6/7 (+)Pap done todaySTI testing declinedHx of maternal grandmothe r with BC in her 30-40, genetic testing discussedU TD with PCP Dyspareunia [id number] N94 .10 Recently SA with new partner, pain with IC at insertion. Pain with urination after IC, feels similar to UTI symptoms that quickly resolve after IC.STI testing declinedUA today WNLCx sentWe discussed vulvar care guidelines , lubricatio n, etcDiscuss ed PFPT - declined at this timeIf symptoms continue, consider PFPT / STI testing / pelvic u/s - patient verbalized understand ing Dysuria [id number] R30.0 Urinary symptoms [id number] R39.9 Contracept ion care management [id number] Z30.9 [id number] Staci Sinclair MD [facility] [address] [address] 07/14/2022 15:28:58 07/20/2022 16:31:50 Screening procedure [id number] Z13.9 Atypical s quamous cells of undetermined significance on cervical Papanicolaou smear [id number] R87.610 Human kenny lloma virus infection [id number] B97.7 [id number] TIAN Rico [facility] [address] [address] 05/10/2023 15:28:11 05/10/2023 16:08:36 Gynecologic examination [id number] Z01.419 Z11.51 WWEBC - POPHappy with this method. Would like to continueR/ B of POP discussed and accepted by patientRx sent x 12 monthsSTI testing declinedpa p updatedUTD with PCPRTC in 1 yr or sooner if needed Take Calcium with Vitamin D daily if not receiving in daily diet.It is strongly advised to have an annual flu shot and up can obtain at most pharmacies . If you have not had a TDap shot in the last 10 years you should obtain one as well. Discussed with patient & provided with informatio n regarding Gardisil vaccine to prevent the 4 strains for HPV that cause cervical cancer if under age 26.Encoura ge safe sexual practices, to use condoms and limit partners if not already in a monogamous relationsh ip.Do monthly self breast exams. Engage in daily exercise of low impact aerobic exercise 45-60 minutes 4-5 times weekly. Avoid tobacco and illicit drugs. This lifestyle behavior pattern will lead to less health conditions and longer life span. If BMI greater than 25 dietary consult advised.Joshua perkins received above instructio ns, and questions have been answered. If you have any questions please call or respond to this email. Patient was made aware of the patient portal and may obtain a paper copy of today's plan if desired. [facility] [id number] Z30.9 [id number] TIAN Smiley-[facility] [address] [address] 06/17/2023 16:51:04 06/17/2023 17:25:40 Screening procedure 34927348 Z13.9 Low grade squamous intraepithelial lesion on cervical Papanicolaou smear [id number] 9105 R87.612 See procedure notes.Post -procedure instructio ns reviewed with understand ing verbalized .Will contact with results & next steps in plan of care. Counseled on Pap/HPV guidelines /Testing/R esults with understand ing verbalized .All questions answered to patient satisfacti on. Booklet & additional resources regarding pap smear/HPV/ Pap results given. [email or web address]://ww w.cancer.g ov/types/c ervical/un derstandin g-abnormal -hpv-and-p ap-test-re sults/unde rstanding- cervical-c hanges.pdf Urinary symptoms [id number] 08 R39.9 Urine Suspect for UTICx and microscopy sentRx sent Counseled on medication R/B's, Most common side effects, & use. All questions were answered to patient satisfacti on. [id number] Kieran Stanton MD [facility] [address] [address] 12/20/2023 16:14:13 12/24/2023 00:26:33 Dysplasia of cervix 74584871 N87.9 We discussed HPV, cervical dysplasia, cervical cancer. We discussed HPV transmissi on, natural history, and dormancy. We discussed cervical dysplasia screening, diagnosis, treatment. She was given precaution s about follow-up. She was warned of the potential cervical cancer as an outcome in this situation. We discussed LEEP procedure. We discussed the procedure in detail. I showed her video. We discussed the risks, benefits, and alternativ es. I spent more than 30 minutes on her care. We made a decision to perform a surgery. [id number] Kieran Stanton MD [facility] [address],[facility] [place] [address] 02/03/2024 14:11:00 02/04/2024 13:56:06 Screening procedure 53312536 Z13.9 Dysplasia of cervix 7339 1008 N87.9 LEEP procedure was performed without complicati ons. She tolerated it well. [id number] Amaris Yee [facility] [address],[place] [address] 02/10/2024 15:34:11 02/11/2024 09:46:33 [id number] Kieran Stanton MD [facility] [address],[place] [address] 02/22/2024 11:02:28 02/22/2024 12:17:44 Bacterial vaginosis [id number] N76.0 Vaginal va ult bleeding 939583258 N93.9 This patient is a 33-year-ol d female who is 3 weeks proximally status post LEEP. She has had continued bleeding. She was examined. Silver nitrate was applied to the cut surface. No specific area of bleeding was observed. It was healing well. She has vaginal odor. Swabs were obtained. She will be treated with Metrogel. the medication was described to the patient. We talked about risks, benefits, and alternativ es. Precaution s and instructio ns were given. [id number] DELORES GUTHRIE NP [facility] [address],[place] [address] 04/11/2024 16:52:46 04/11/2024 17:27:52 Genital herpes simplex 02864243 A60.9 HSV culture sent to confirm infection. Discussed that the culture may not be accurate since ulcers are mainly crusted over.Rx sent for Valtrx 500 mg BID x 3 days for episodic outbreak. Recommende d daily suppressiv e therapy if pt experience s more than 3 outbreaks per year.Recom mended applying aquaphor or vaseline to lesions to help reduce burning with urination. Health Concerns Section Related Observation LastModified by Organization Detai ls LastModified Time None Recorded Concern Status LastModified by Organization Details LastModified Time None Recorded Advance Directives Directive N: Payers Encounter Date Sequence Insurance Name Policy Number Policy [place] Covered Member ID [place] Member ID Guarantor Name 12/20/2023 1 [place] [id number] [facility] [id number] [facility] 02/03/2024 1 [place] [id number] [facility] [id number] [facility] 02/10/2024 1 [place] [id number] [facility] [id number] [facility] 02/22/2024 1 [place] [id number] [facility] [id number] 50 [facility] 04/11/2024 1 [place] [id number] [facility] [id number] 50 [facility] Notes Date Note Type Note Provider Name and Address Organization Details Recorded Time 12/20/2023 text/html We discussed HPV , cervical dysplasia, cervical cancer. We discussed HPV transmission, natural history, and dormancy. We discussed cervical dysplasia screening, diagnosis, treatment. She was given precautions about follow-up. She was warned of the potential cervical cancer as an outcome in this situation. We discussed LEEP procedure. We discussed the procedure in detail. I showed her video. We discussed the risks, benefits, and alternatives. I spent more than 30 minutes on her care. We made a decision to perform a surgery. Kieran Stanton MD [address], [place], [address], [facility] 12/23/2023 21:10:42 02/03/2024 text/html this patient is a 33-year-old female who presents for LEEP procedure. She understands the procedure. Has been explained to her in detail. She understands the risks, benefits, and alternatives. She has completed the informed consent process and is ready to proceed. Kieran Stanton MD [address], [place], [address], [facility] 02/03/2024 22:47:11 02/22/2024 text/html This patient is a 33-year-old female who is 3 weeks proximally status post LEEP. She has had continued bleeding. She was examined. Silver nitrate was applied to the cut surface. No specific area of bleeding was observed. It was healing well. She has vaginal odor. Swabs were obtained. She will be treated with Metrogel. Kieran Stanton MD [address], [place], [address], [facility] 02/22/2024 12:10:50 04/11/2024 text/html Patient here wit h c/o herpes outbreak on vulva that appeared 3 days ago. Patient states that she has had burning pain due to the lesions. Patient has had both oral and genital HSV outbreaks in the past, confirmed by her PCP, but not in the last year. Patient states that the pain is starting to improve slightly. DELORES GUTHRIE NP [address], [place], [address], [facility] 04/11/2024 17:25:17 OBGyn Episode No OBEpisode recorded.
[2024-09-06 14:47] LABS: Anion Gap 8 mmol/L (4-12); Blood Urea Nitrogen 7 mg/dL (7-17); Carbon Dioxide 28 mmol/L (22-30); Chloride 99 mmol/L (98-107); Estimated Glomerular Filt Rate > 60; Glucose 135 mg/dL (65-110); Potassium 3.3 mmol/L (3.4-5.0); Sodium 135 mmol/L (137-145)
[2024-09-06 14:48] LABS: Add Urine Microscopic? YES; Appearance Urine Cloudy (Clear); Bacteria Urine 2+ /hpf; Bilirubin Urine 2+ (Negative); Blood Urine 3+ (Negative); Color Urine Dark Yellow (Yellow); Glucose Urine UA Negative (Negative); Ketones Urine 1+ mg/dL (Negative); Leukocyte Esterase Ur 1+ LEU/UL (Negative); Need Manual Microscopic Reviewed; Nitrate Urine Negative (Negative); Protein Urine 2+ mg/dL (Negative); RBC Urine >100 /hpf (0-2); Specific Grav Ur 1.035 (1.001-1.035); Squamous Epithelial Cell Urine Many /hpf (Few)
[2024-09-06 14:55] LABS: Influenza A QL RT-PCR Negative (Negative); Influenza B QL RT-PCR Negative (Negative); RSV RNA, RT-PCR Negative (Negative); SARS-CoV-2 RNA PCR Negative (Negative)
[2024-09-06 14:56] LABS: NT Pro B Type Natriuretic Pept 407 pg/mL (19.9-100)
--- OUTSIDE RECORDS SUMMARY | 2024-09-06 14:56 | XMS_ITS | Patient Health Record ---
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 Name Role Phone Karey Ascencio Primary Care Provider Unavailab Shahla Murdock Unavailable [phone] Migration, Provider Unavailable Unavailable Allergies Allergen (clinical drug ingredient) Drug/Non Drug Allergy documented on EMR Reaction Allergy Type Onset Date Status sulfamethoxazole / trimethoprim Bactrim Unknown Drug Allergy 06/21/2023 Active Substance with penicillin structure and antibacterial mechanism of action (substance) Penicillins Unknown Drug Allergy 06/21/2023 Active Results Component Value Reference Range Notes VITAMIN D,25-OH,TOTAL,IA (17 306) Reviewed date:09/05/2024 03:46:45 PM Interpretation: Performing Lab:[place], [facility][id number] Kendall Fisher, [id number] Barney Reinoso MD Notes/Report: NON-FASTING; NON-FASTING; NON-FASTING; NON-FASTING; NON-FAST FASTING:NO FASTING: NO VITAMIN D,25-OH,TOTAL,IA 29 30-100 ng/mL Vitamin D Status 25-OH Vitamin D: Deficiency: <20 ng/mL Insufficiency: 20 - 29 ng/mL Optimal: > or = 30 ng/mL For 25-OH Vitamin D testing on patients on D2-supplementation and patients for whom quantitation of D2 and D3 fractions is required, the QuestAssureD(TM) 25-OH VIT D, (D2,D3), LC/MS/MS is recommended: order code 33309 (patients >2yrs). See Note 1 Note 1 For additional information, please refer to http://education.[facility].com/faq/ OXD921 (This link is being provided for informational/ educational purposes only.) TSH W/REFLEX TO FT4 (75426) Reviewed date:09/05/2024 03:46:45 PM Interpretation: Performing Lab:[place] [address] Administration Martin Elmore [place] [address] Barney Reinoso Notes/Report: NON-FASTING; NON-FASTING; NON-FASTING; NON-FASTING; NON-FAST FASTING:NO FASTING: NO TSH W/REFLEX TO FT4 1.41 Reference Range > or = 20 Years 0.40-4.50 Ranges First trimester 0.26-2.66 Second trimester 0.55-2.73 Third trimester 0.43-2.91 VITAMIN B12/FOLATE, SERUM PA TU (7065) Reviewed date:09/05/2024 03:46:45 PM Interpretation: Performing Lab:[facility]-[id number] Kendall Salas, [id number] Barney Reinoso MD Notes/Report: NON-FASTING; NON-FASTING; NON-FASTING; NON-FASTING; NON-FAST FASTING:NO FASTING: NO VITAMIN B12 337 264-2102 pg/mL FOLATE, SERUM 5.4 Reference Range Low: <3.4 Borderline: 3.4-5.4 Normal: >5.4 HEMOGLOBIN A1c (496) Reviewed date:09/05/2024 03:46:45 PM Interpretation: Performing Lab:[facility] [place] [address] Administration Martin Elmore [place] [address] Barney Reinoso Notes/Report: NON-FASTING; NON-FASTING; NON-FASTING; NON-FASTING; NON-FAST FASTING:NO FASTING: NO HEMOGLOBIN A1c 5.8 <5.7 % of total Hgb For someone without known diabetes, a hemoglobin A1c value between 5.7% and 6.4% is consistent with prediabetes and should be confirmed with a follow-up test. For someone with known diabetes, a value <7% indicates that their diabetes is well controlled. A1c targets should be individualized based on duration of diabetes, age, comorbid conditions, and other considerations. This assay result is consistent with an increased risk of diabetes. Currently, no consensus exists regarding use of hemoglobin A1c for diagnosis of diabetes for children. CBC (INCLUDES DIFF/PLT) (REF L) (52466) Reviewed date:09/05/2024 03:46:45 PM Interpretation: Performing Lab:[place] [address] Administration Martin Elmore [id number] [facility] Notes/Report: NON-FASTING; NON-FASTING; NON-FASTING; NON-FASTING; NON-FAST FASTING:NO FASTING: NO WHITE BLOOD CELL COUNT 14.2 3.8-10.8 Thousand/uL RED BLOOD CELL COUNT 3.76 3.80-5.10 Million/uL HEMOGLOBIN 9.5 11.7-15.5 g/dL HEMATOCRIT 30.0 35.0-45.0 % MCV 79.8 80.0-100.0 fL MCH 25.3 27.0-33.0 pg MCHC 31.7 32.0-36.0 g/dL For adults, a slight decrease in the calculated MCHC value (in the range of 30 to 32 g/dL) is most likely not clinically significant; however, it should be interpreted with caution in correlation with other red cell parameters and the patient's clinical condition. RDW 13.5 11.0-15.0 % PLATELET COUNT 510 140-400 Thousand/uL MPV 9.9 7.5-12.5 fL ABSOLUTE NEUTROPHILS 37940 4421-2376 cells/uL ABSOLUTE LYMPHOCYTES 2726 850-3900 cells/uL ABSOLUTE MONOCYTES 639 200-950 cells/uL ABSOLUTE EOSINOPHILS 256 15-500 cells/uL ABSOLUTE BASOPHILS 28 0-200 cells/uL NEUTROPHILS 74.3 LYMPHOCYTES 19.2 MONOCYTES 4.5 EOSINOPHILS 1.8 BASOPHILS 0.2 COMPREHENSIVE METABOLIC PANE L (72828) Reviewed date:09/05/2024 03:46:45 PM Interpretation: Performing Lab:[place] [id number] Administration Martin Elmore [id number] [facility] Notes/Report: NON-FASTING; NON-FASTING; NON-FASTING; NON-FASTING; NON-FAST FASTING:NO FASTING: NO GLUCOSE 100 65-139 mg/dL Non-fasting reference interval UREA NITROGEN (BUN) 14 7-25 mg/dL CREATININE 0.97 0.50-0.97 mg/dL EGFR 79 > OR = 60 mL/min/1.73m2 BUN/CREATININE RATIO SEE NOTE: 6-22 (calc) Not Reported: BUN and Creatinine are within reference range. SODIUM 136 135-146 mmol/L POTASSIUM 4.0 3.5-5.3 mmol/L CHLORIDE 99 98-110 mmol/L CARBON DIOXIDE 28 20-32 mmol/L CALCIUM 8.6 8.6-10.2 mg/dL PROTEIN, TOTAL 7.1 6.1-8.1 g/dL ALBUMIN 3.5 3.6-5.1 g/dL GLOBULIN 3.6 1.9-3.7 g/dL (calc) ALBUMIN/GLOBULIN RATIO 1.0 1.0-2.5 (calc) BILIRUBIN, TOTAL 0.7 0.2-1.2 mg/dL ALKALINE PHOSPHATASE 101 31-125 U/L AST 29 10-30 U/L ALT 37 6-29 U/L UDT Reviewed date:11/17/2023 04:38:25 PM Interpretation: Performing Lab: Notes/Report: THC negative 0 - 50 ng/ml Cocaine negative Amphetamine negative Buprenorphine (BUP) negative Secobarbital (Bar) negative Oxazepam (BZO) negative 4-smzsqrwled-4,7-mxptkwpy-2, 3-dipheny lpyrrolidine (EDDP) negative Methamphetamine (MET) negative Methylenedioxymethamphetamine (MDMA) negative Morphine (MOP 300/MGR2844) negative Methadone (MTD) negative Phencyclidine (PCP) negative Nortriptyline (TCA) negative x negative Reason For Referral No Information Medications Medication SIG (Take, Route, Frequency, Duration) Notes Start Date End Date Status Escitalopram Oxalate 20 MG 1 tablet Oral Once a day for 90 days Active Qelbree 200 MG 3 capsule Oral Once a day for 30 days Active ProAir HFA 108 (90 Base) MCG/ACT Inhalation 09/13/2023 Unknown Norethindrone 0.35 MG Oral 09/13/2023 Unknown Nitrofurantoin Monohyd Macro 100 MG Oral 09/13/2023 Unknown Camrese 0.15 mg-30 mcg (84)/10 mcg (7) Oral *Pick strength-form from in2niteChirpify for eRX* 09/13/2023 Unknown Tretinoin 0.05 % External 09/13/2023 Un known clonazePAM 0.5 MG 1 tablet Orally Once a day for 15 days MUST SCHEDULE APT FOR CONTINUED REFILLS 06/27/2024 Active buPROPion HCl ER (XL) 150 MG 1 tablet in the morning Oral Once a day for 90 days Active Escitalopram Oxalate 20 MG 1 tablet Orally Once a day for 30 days MAKE AN APT FOR CONTINUED REFILLS Active Ergocalciferol 1.25 MG (14381 UT) 1 capsule Orally once weekly 09/05/2024 Active Ergocalciferol 50 MCG (2000 UT) 1 capsule Orally Once a day for 90 days 11/06/2024 11/01/2025 Active buPROPion HCl ER (XL) 300 MG 1 tablet in the morning Oral Once a day for 30 days Active clonazePAM 0.5 MG 1 tablet Oral Once a day for 30 days 08/29/2024 Active Immunizations Vaccine Route Administration Date Status [facility] Covid-19 Vaccine 1st dose Unknown 06/16/2021 Ad ministered Social History Tobacco Use: Social History Observation Description Date Details (start date - stop date) Never Smoker NA - NA Sex Assigned At : Social History Observation Description Sex Assigned At Female Tobacco Control (Standard) Question Answer Notes Tobacco use: Nonsmoker Problems Problem Type SNOMED Code ICD Code Onset Dates Problem Status W/U Status Risk Notes Problem Severe recurrent major depression without psychotic features (18723205) Major depressive disorder, recurrent severe without psychotic features (F33.2) Active confirmed Problem Generalized anxiety disorder (77166964) Generalized anxiety disorder (F41.1) Active confirmed Problem Attention deficit hyperactivity disorder, combined type (48279569) Attention-deficit hyperactivity disorder, combined type (F90.2) Active confirmed Vital Signs Heart Rate 80 /min 08/29/2024 Height-cm 162.56 cm 08/29/2024 Blood pressure diastolic 75 mm Hg 08/29/2024 Weight-kg 86.18 kg 08/29/2024 Height 64.00 in 08/29/2024 Blood pressure systolic 113 mm Hg 08/29/2024 Weight 190 lbs 08/29/2024 BMI 32.61 kg/m2 08/29/2024 Encounters Encounter Location Date Provider Diagnosis [facility] [address] [place] [address] 09/13/2023 Shahla Heidi Generalized anxiety disorder F41.1 ; Attention-deficit hyperactivity disorder, combined type F90.2 and Major depressive disorder, recurrent, mild F33.0 [facility] [address] [place] [address] 10/13/2023 Provider Migration Generalized anxiety disorder F41.1 [facility], [facility] [address] [place] [address] 11/11/2023 Shahla Gordon [facility], [facility] [address] [place] [address] 11/17/2023 Shahla Gordon Major depressive disorder, recurrent severe without psychotic features F33.2 ; Generalized anxiety disorder F41.1 and Attention-deficit hyperactivity disorder, combined type F90.2 [facility], [facility] [address] [place] [address] 08/15/2024 Shahla Gordon [facility], [facility] [address] [place] [address] 08/29/2024 Shahla Gordon Generalized anxiety disorder F41.1 ; Attention-deficit hyperactivity disorder, combined type F90.2 ; Encounter for screening for depression Z13.31 ; Major depressive disorder, recurrent severe without psychotic features F33.2 ; Encounter for screening for cardiovascular disorders Z13.6 and Other half-way (current) drug therapy Z79.899 [facility], [facility] [address] [place] [address] 10/01/2023 Provider Migration [facility], [facility] [address] [place] [address] 10/12/2023 Provider Migration [facility], [facility] [address] [place] [address] 10/16/2023 Provider Migration [facility], [facility] [address] [place] [address] 10/17/2023 Provider Migration [facility], [facility] [address] [place] [address] 11/29/2023 Shahla Gordon Attention-deficit hyperactivity disorder, combined type F90.2 [facility], [facility] [address] [place] [address] 11/30/2023 Shahla Gordon Attention-deficit hyperactivity disorder, combined type F90.2 [facility], [facility] [address] [place] [address] 12/09/2023 Shahla Gordon [facility], [facility] [address] [place] [address] 06/08/2024 Shahla Heidi Attention-deficit hyperactivity disorder, combined type F90.2 [facility], [facility] [address] [place] [address] 09/04/2024 Shahla Gordon [facility], [facility] [address] [place] [address] 01/18/2024 Shahla Heidi Attention-deficit hyperactivity disorder, combined type F90.2 and Major depressive disorder, recurrent severe without psychotic features F33.2 [facility], [facility] [address] [place] [address] 01/18/2024 Shahlaevelia Gordon [facility], [facility] [address] [place] [address] 01/19/2024 Shahla Gordon [facility], [facility] [address] [place] [address] 05/15/2024 Shahla Gordon Attention-deficit hyperactivity disorder, combined type F90.2 [facility], [facility] [address] [place] [address] 07/09/2024 Shahlaevelia Gordon [facility], [facility] [address] [place] [address] 07/25/2024 Shahla Gordon [facility], [facility] [address] [place] [address] 07/25/2024 Shahla Gordon [facility], [facility] [address] [place] [address] 07/26/2024 Shahla Gordon [facility], [facility] [address] [place] [address] 08/08/2024 Shahla Gordon Major depressive disorder, recurrent severe without psychotic features F33.2 [facility], [facility] [address] [place] [address] 08/18/2024 Shahla Gordon [facility], [facility] [address] [place] [address] 08/20/2024 Shahla Gordon [facility], [facility] [address] [place] [address] 09/05/2024 Shahla Gordon Assessments Encounter Date Diagnosis (ICD Code) Assessment Notes Treatment Notes Treatment Clinical Notes Section Notes 11/17/2023 Major depressive disorder, recurrent severe without psychotic features (ICD-10 - F33.2) Decrease Wellbutrin to 150mg daily 06/08/2024 Attention-deficit hyperactivity disorder, combined type (ICD-10 - F90.2) Electronic Prior Authorization was requested for Qelbree 200 MG Capsule Extended Release 24 Hour. Provider can order medication once approval received. 08/08/2024 Major depressive disorder, recurrent severe without psychotic features (ICD-10 - F33.2) 01/18/2024 Attention-deficit hyperactivity disorder, combined type (ICD-10 - F90.2) 11/17/2023 Generalized anxiety disorder (ICD-10 - F41.1) 08/29/2024 Generalized anxiety disorder (ICD-10 - F41.1) 09/13/2023 Major depressive disorder, recurrent, mild (ICD-10 - F33.0) 09/13/2023 Generalized anxiety disorder (ICD-10 - F41.1) 09/13/2023 Attention-deficit hyperactivity disorder, combined type (ICD-10 - F90.2) 10/13/2023 Generalized anxiety disorder (ICD-10 - F41.1) 08/29/2024 Attention-deficit hyperactivity disorder, combined type (ICD-10 - F90.2) 11/17/2023 Attention-deficit hyperactivity disorder, combined type (ICD-10 - F90.2) Increase Qelbree to 600mg daily for ADHD 11/29/2023 Attention-deficit hyperactivity disorder, combined type (ICD-10 - F90.2) Electronic Prior Authorization was requested for Qelbree 200 MG Capsule Extended Release 24 Hour. Provider can order medication once approval received. 11/30/2023 Attention-deficit hyperactivity disorder, combined type (ICD-10 - F90.2) Electronic Prior Authorization was requested for Qelbree 200 MG Capsule Extended Release 24 Hour. Provider can order medication once approval received. 01/18/2024 Major depressive disorder, recurrent severe without psychotic features (ICD-10 - F33.2) 05/15/2024 Attention-deficit hyperactivity disorder, combined type (ICD-10 - F90.2) Electronic Prior Authorization was requested for Qelbree 200 MG Capsule Extended Release 24 Hour. Provider can order medication once approval received. 08/29/2024 Major depressive disorder, recurrent severe without psychotic features (ICD-10 - F33.2) Decrease Wellbutrin to 150mg daily 08/29/2024 Encounter for screening for depression (ICD-10 - Z13.31) 08/29/2024 Encounter for screening for cardiovascular disorders (ICD-10 - Z13.6) 08/29/2024 Other half-way (current) drug therapy (ICD-10 - Z79.899) 08/29/2024 Other Continue off of Qelbree. Cont Wellbutrin, escitalopram at current doses -refill of clonazepam sent in. Patient educated on all medications including potential benefits, side effects, risks. Educated on proper dosing schedule and importance of compliance. Labs ordered to rule out medical cause of fatigue -Assessment and treatment plan reviewed with patient. -Compliance with treatment plan importance discussed. -Discussed the risks/benefits of this medication -Discussed medication side effects. -Contact office if symptoms worsen. -Discussed that it can take up to 6-8 weeks to see full therapeutic effects of psychotropic medications. -Crisis prevention hotline 638. Plan Of Treatment No Information Insurance Providers Payer Name Payer Address Payer Phone Subscriber Number Group Number Insured Name Patient Relationship to Insured Coverage Start Date Coverage End Date [facility] [address] [place] [address] [id number] CINDI SMITH Self - patient is the insured Medical (General) History Medical History History ICD Code Problems: Attention deficit hyperactivit y disorder, combined type Binge eating disorder Fatigue Generalized anxiety disorder Long-term drug therapy Mild recurrent major depression , Surgical History Surgery Date(Month/Year) Any surgical history Other 05/31/2019 Tonsilectomy/adenoids 05/31/2019
[2024-09-06 15:00] LABS: D Dimer 3.07 ug/mL (<0.48)
[2024-09-06] MEDS: ACETAMINOPHEN 500 MG TABLET 1000 MG PO (15:10)
[2024-09-06] MEDS: POTASSIUM BICARBONATE 25 MEQ TABEF PO (16:11)
[2024-09-06] MEDS: levoFLOXacin 500 MG TABLET PO (18:39)
== END 2024-09-06 20:23 | disposition home or self-care (01) ==
PROVIDERS: Emergency Provider Student in an Organized Health Care Education/Training Program
DX: J18.9 Pneumonia, unspecified organism (principal); N39.0 Urinary tract infection, site not specified; E87.6 Hypokalemia; D75.839 Thrombocytosis, unspecified; D64.9 Anemia, unspecified; D72.829 Elevated white blood cell count, unspecified; R73.9 Hyperglycemia, unspecified; Z20.822 Contact with and (suspected) exposure to COVID-19; I10 Essential (primary) hypertension; J45.990 Exercise induced bronchospasm; K21.9 Gastro-esophageal reflux disease without esophagitis; F98.8 Other specified behavioral and emotional disorders with onset usually occurring in childhood and adolescence; Z86.16 Personal history of COVID-19; Z79.899 Other long term (current) drug therapy; Z79.3 Long term (current) use of hormonal contraceptives
CPT/HCPCS: 36415; 71275; 80048; 81001; 83735; 83880; 85025; 85380; 87637; 93005; 94640; 99284; A9270; J7512; Q9967

== ENCOUNTER 2025-01-10 13:09 | Emergency (ER) | payer BC, SELFPAY ==
[2025-01-10 13:15] VITALS: BP 125/78; PULSE 90; RESP 16; TEMP 36.3; O2SAT 99
--- NOTE | 2025-01-10 13:19 | ED.GENADULT ---
HPI - General Adult General Chief complaint: Extremity Problem,Nontraumatic Stated complaint: numbness/tingling to LUE Source: patient Mode of arrival: ambulatory Limitations: no limitations History of Present Illness HPI narrative: Pt is a R hand dominant 34 y/o female presenting with c/o atraumatic numbness/tingling to the L. wrist that shoots down into the first three fingers on her L. hand. Sx have been ongoing for years. Denies evaluation of sx prior to today. No tx initiated [employer]. No additional complaints. Related Data Home Medications ?Medication ?Instructions ?Recorded ?Confirmed ?Last Taken ?Type tretinoin 0.05 % topical cream 1 applic topical ONCE 01/16/21 04/08/22 Unknown History lamotrigine 100 mg tablet,extended 100 mg PO DAILY 04/08/22 04/08/22 Unknown History release 24 hr (Lamictal XR) lisdexamfetamine 30 mg capsule 30 mg PO DAILY 04/08/22 04/08/22 Unknown History (Vyvanse) lisdexamfetamine 40 mg capsule 40 mg PO QAM 04/08/22 04/08/22 Unknown History (Vyvanse) bupropion HCl 300 mg 24 hr tablet, mg PO 09/06/24 Unknown History extended release ergocalciferol (vitamin D2) 1,250 09/06/24 Unknown History mcg (50,000 unit) capsule norethindrone (contraceptive) 0.35 mg 09/06/24 Unknown History mg tablet viloxazine 200 mg capsule,extended mg PO 09/06/24 Unknown History release 24 hr (Qelbree) clonazepam 0.5 mg tablet mg 01/10/25 Unknown History Allergies Allergy/AdvReac Type Severity Reaction Status Date / Time Penicillins Allergy Mild Unknown Verified 01/10/25 13:26 sulfamethoxazole (From Allergy Unknown Unknown Verified 01/10/25 13:26 Bactrim) trimethoprim (From Bactrim) Allergy Unknown Unknown Verified 01/10/25 13:26 Review of Systems Review of Systems: CONSTITUTIONAL: Denies body aches, fever, chills, or sweats. EYES: Denies visual changes, redness, or discharge. ENT: Denies rhinorrhea, congestion, sore throat, or otalgia. CARDIOVASCULAR: Denies chest pain, palpitations, or edema. RESPIRATORY: Denies cough or dyspnea. GASTROINTESTINAL: Denies abdominal pain, nausea, vomiting, or diarrhea. GENITOURINARY: Denies dysuria or hematuria. SKIN: Denies rash, itching, or wounds. MUSCULOSKELETAL: Reports numbness/tingling to the L. wrist/L. hand. Denies back pain, joint pain, or myalgia. NEUROLOGIC: Denies headache, numbness, tingling, or weakness. PSYCH: Denies depression or anxiety. All systems reviewed & are unremarkable except as noted in HPI and below PMFSH Past Medical History Medical History Essential hypertension GERD without esophagitis Asthma Breast lump Last pap smear 2017 ADD (attention deficit disorder) (~2009) Anxiety Surgical History Surgical History Hx of tonsillectomy (~2019) Hx of removal of thyroglossal duct cyst (~1993) Family History Family History Mother Family history of malignant neoplasm of cervix Grandparent Family history of malignant neoplasm of breast Diabetes mellitus Depression Family history of cardiovascular disease Father Family history of mental disorder Depression Hypertension Other Family history of coronary artery disease Social History Social History Social History: 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 Grew up in [place]. Smoking status: Never smoker Alcohol intake: current Drinks per week: 10 Substance use: never Lack of Transportation: No Lack of Food: Never True Current Housing: I Have Housing Concerned About Future Housing: No Difficulty Paying Gas/Electric Bills: No Difficulty Paying for Meds: No Currently Unemployed: No Education: Decline to Answer Difficulty w/ Childcare or Family Care: No Exam Narrative: GENERAL: Well-appearing, well-nourished, and in no acute distress. HEAD: Normocephalic, atraumatic. EYES: EOMI. No redness or drainage. Conjunctivae normal. NECK: Normal AROM. Supple. CHEST: No respiratory distress HEART: Regular rate Normal peripheral pulses. MUSCULOSKELETAL: No bony tenderness. EXTREMITIES: Normal range of motion. No edema. LUE without erythema, edema, ecchymosis. LUE is NonTTP. Negative tinel, +phalen. +DNVI +FROM to the LUE SKIN: Warm, dry, no rash. Capillary refill normal. Normal skin turgor. NEURO: No focal deficits. Alert and oriented x3. Gait steady. PSYCH: Normal affect. No signs of depression or anxiety. Course Course Emergency Course: suspect carpal tunnel based on her sx. Very bizarre individual--could not sit still. ??uncontrolled psych disorder vs illicit drug use Level of Care: Express Care Visit Vital Signs Vital signs: Vital Signs Temperature 97.3 F L 01/10/25 13:15 Pulse Rate 90 01/10/25 13:15 Respiratory Rate 16 01/10/25 13:15 Blood Pressure 125/78 01/10/25 13:15 Pulse Oximetry 99 01/10/25 13:15 Temperature 97.3 F L 01/10/25 13:15 Pulse Rate 90 01/10/25 13:15 Respiratory Rate 16 01/10/25 13:15 Blood Pressure 125/78 01/10/25 13:15 Pulse Oximetry 99 01/10/25 13:15 Medical Decision Making Vital Signs Vital Signs: Vital Signs Temperature 97.3 F L 01/10/25 13:15 Pulse Rate 90 01/10/25 13:15 Respiratory Rate 16 01/10/25 13:15 Blood Pressure 125/78 01/10/25 13:15 Pulse Oximetry 99 01/10/25 13:15 Temperature 97.3 F L 01/10/25 13:15 Pulse Rate 90 01/10/25 13:15 Respiratory Rate 16 01/10/25 13:15 Blood Pressure 125/78 01/10/25 13:15 Pulse Oximetry 99 01/10/25 13:15 Discharge Plan Discharge Clinical Impression: Numbness and tingling in left hand Patient Disposition: Home Condition: Stable Instructions: Antibiotic Form, Carpal Tunnel Syndrome (DC) Additional Instructions: Go straight to ER should your symptoms become worse or should any new symptoms develop Patient Language: Filipino Prescriptions: No Action ergocalciferol (vitamin D2) 1,250 mcg (50,000 unit) capsule norethindrone (contraceptive) 0.35 mg tablet bupropion HCl 300 mg tablet extended release 24 hr PO Qelbree 200 mg capsule,extended release 24hr PO clonazepam 0.5 mg tablet escitalopram oxalate [Lexapro] 20 mg tablet 20 mg PO DAILY Qty: 90 1RF tretinoin 0.05 % cream 1 applic topical ONCE lamotrigine [Lamictal XR] 100 mg tablet extended release 24hr 100 mg PO DAILY Rx Instructions: 1/2 tablets qd Vyvanse 40 mg capsule 40 mg PO QAM Vyvanse 30 mg capsule 30 mg PO DAILY Sore Throat and Cough 5-7.5 mg lozenge 1 kaykay PO Q4H PRN (Reason: cough) Qty: 18 0RF alprazolam [Xanax] 0.5 mg tablet 0.5 mg PO QHS PRN (Reason: anxiety) Qty: 30 0RF L norgest/e.estradiol-e.estrad [Ashlyna] 0.15 mg-30 mcg (84)/10 mcg (7) tablets,dose pack,3 month 1 tablet PO DAILY Qty: 182 3RF losartan 25 mg tablet 25 mg PO DAILY Qty: 90 1RF albuterol sulfate [ProAir HFA] 90 mcg/actuation HFA aerosol inhaler 1 puff inhalation Q4H PRN (Reason: shortness of breath or wheezing) Qty: 8.5 1RF Follow-up/Referrals: Karey Murry NP [Primary Care Provider] - 01/10/25 Time of Disposition: 14:09
== END 2025-01-10 14:12 | disposition home or self-care (01) ==
PROVIDERS: Emergency Provider Registered Nurse; PCP Nurse Practitioner Family
DX: R20.0 Anesthesia of skin (principal); R20.2 Paresthesia of skin; I10 Essential (primary) hypertension; K21.9 Gastro-esophageal reflux disease without esophagitis; J45.909 Unspecified asthma, uncomplicated; F98.8 Other specified behavioral and emotional disorders with onset usually occurring in childhood and adolescence; F41.9 Anxiety disorder, unspecified
CPT/HCPCS: 99211; G0463